=== PATIENT | male | born 1990 | race American Indian/Alaskan Native ===

== ENCOUNTER 2018-12-18 16:10 | Emergency (ER) | payer SELFPAY ==
--- NOTE | 2018-12-18 16:27 | Event Note ---
ED Screening Note Date of service: 12/18/18 Time: 16:23 ED Screening Note: This is a 28 y.o. M. that presents to the ER nervous and anxious. Denies SI/HI Reports taking ecstasy and percocet prior to arrival to self medicate. This initial assessment/diagnostic orders/clinical plan/treatment(s) is/are subject to change based on patients health status, clinical progression and re- assessment by fellow clinical providers in the ED. Further treatment and workup at subsequent clinical providers discretion. Patient/guardian urged not to elope from the ED as their condition may be serious if not clinically assessed and managed. Initial orders include: Labs
--- NOTE | 2018-12-18 17:01 | Emergency Department Report ---
<DARCISARAHEULALIO FavioBetsy - Last Filed: 12/19/18 22:02> ED Psych HPI - General Chief Complaint: Psych Stated Complaint: PANIC ATTACK Time Seen by Provider: 12/18/18 16:22 Source: patient Mode of arrival: Ambulatory - History of Present Illness Initial Comments: Patient is a 28-year-old male with no significant past medical history except for depression. Patient brought to the emergency room accompanied by his brother stated that his brother took some ecstasy and Percocet. Patient came with altered mental status. Patient is talking to himself and agitated. Patient responding to internal stimuli. Patient denied any suicidal ideation or homicidal ideation. MD Complaint: altered mental status - Related Data Allergies Allergy/AdvReac Type Severity Reaction Status Date / Time No Known Allergies Allergy Verified 12/18/18 16:22 ED Review of Systems Comment: All other systems reviewed and negative Constitutional: denies: chills, fever Respiratory: denies: cough, orthopnea, shortness of breath, SOB with exertion, SOB at rest, wheezing Cardiovascular: denies: chest pain, palpitations Gastrointestinal: denies: abdominal pain, nausea, vomiting, diarrhea, constipation, hematemesis, melena Musculoskeletal: denies: back pain Neurological: denies: headache, weakness Psychiatric: depression ED Past Medical Hx - Past Medical History Previous Medical History?: No - Surgical History Past Surgical History?: No - Social History Smoking Status: Never Smoker Substance Use Type: Other ED Physical Exam - General Limitations: No Limitations General appearance: alert, in no apparent distress, anxious, other (agitated ) - ENT ENT exam: Present: normal exam, normal orophraynx, mucous membranes moist - Neck Neck exam: Present: normal inspection, full ROM. Absent: tenderness, meningismus, lymphadenopathy, thyromegaly - Respiratory Respiratory exam: Present: normal lung sounds bilaterally - Cardiovascular Cardiovascular Exam: Present: tachycardia - GI/Abdominal GI/Abdominal exam: Present: soft, normal bowel sounds. Absent: distended, tenderness, guarding, rebound, rigid, mass, bruit, pulsatile mass, hernia - Extremities Exam Extremities exam: Present: normal inspection, full ROM, normal capillary refill. Absent: tenderness, pedal edema, calf tenderness - Back Exam Back exam: Present: normal inspection, full ROM. Absent: CVA tenderness (R), CVA tenderness (L), muscle spasm, paraspinal tenderness, vertebral tenderness, r steve noted - Neurological Exam Neurological exam: Present: alert, oriented X3, CN II-XII intact, normal gait, reflexes normal - Psychiatric Psychiatric exam: Present: normal mood - Skin Skin exam: Present: warm, intact, normal color ED Medical Decision Making - Lab Data Result diagrams: 12/18/18 16:45 12/18/18 16:45 ED Disposition Clinical Impression: Drug-induced psychotic disorder, Depression, Amphetamine abuse Disposition: DC-01 TO HOME OR SELFCARE Condition: Stable Instructions: Methamphetamine Abuse (ED), Bipolar Disorder (ED), Depression (ED) Additional Instructions: Follow up with resources provided by mental health. Referrals: PRIMARY CARE, [Primary Care Provider] - 3-5 Days [facility] [Outside] - 3-5 Days <PATRICIO FRIAS - Last Filed: 12/20/18 08:37> ED Review of Systems ROS: Stated complaint: PANIC ATTACK Other details as noted in HPI ED Course Vital Signs 12/18/18 12/18/18 12/19/18 16:23 21:02 01:00 Temperature 97.9 F 98.2 F 98.0 F Pulse Rate 154 H 101 H 70 Respiratory 24 18 18 Rate Blood Pressure 144/90 Blood Pressure 114/90 115/75 [Left] O2 Sat by Pulse 100 99 100 Oximetry 12/19/18 12/19/18 12/19/18 07:00 13:00 19:00 Temperature 98.8 F 98.2 F 98.2 F Pulse Rate 86 108 H 86 Respiratory 18 20 18 Rate Blood Pressure Blood Pressure 132/91 130/77 116/80 [Left] O2 Sat by Pulse 99 97 98 Oximetry 12/19/18 12/20/18 20:00 01:00 Temperature 97.8 F Pulse Rate 73 Respiratory 18 18 Rate Blood Pressure Blood Pressure 115/71 [Left] O2 Sat by Pulse 98 98 Oximetry ED Medical Decision Making - Lab Data Result diagrams: 12/18/18 16:45 12/20/18 05:29 Critical care attestation.: If time is entered above; I have spent that time in minutes in the direct care of this critically ill patient, excluding procedure time. ED Disposition Is pt being admited?: No Does the pt Need Aspirin: No Time of Disposition: 08:37
[2018-12-18] MEDS ORDERED: GEODON IM ONE (17:02)
[2018-12-18 17:06] LABS: Basophils # (Auto) 0.1 K/mm3 (0.0-0.1); Eosinophils # (Auto) 0.1 K/mm3 (0.0-0.4); Eosinophils % (Auto) 0.8 % (0.0-4.3); Hematocrit 45.9 % (35.5-45.6); Hemoglobin 16.2 gm/dl (11.8-15.2); Lymphocytes # (Auto) 1.4 K/mm3 (1.2-5.4); Lymphocytes % (Auto) 20.2 % (13.4-35.0); Mean Corpuscular HGB Conc 35 % (32-34); Mean Corpuscular Volume 91 fl (84-94); Monocytes # (Auto) 0.4 K/mm3 (0.0-0.8); Platelet Count 386 K/mm3 (140-440); Red Blood Count 5.06 M/mm3 (3.65-5.03); Red Cell Distribution Width 12.5 % (13.2-15.2)
[2018-12-18] MEDS ORDERED: WATER FOR INJ Sterile (PF) 10 ML ONE (17:06)
[2018-12-18 17:08] LABS: Bilirubin,Urine NEG (Negative); Blood,Urine NEG (Negative); Color,Urine Yellow (Yellow); Mucus,Urine 1+ /HPF; Protein,Urine <15 mg/dL mg/dL (Negative); Urobilinogen,Urine < 2.0 mg/dL (<2.0); WBC,Urine < 1.0 /HPF (0.0-6.0)
[2018-12-18 17:23] LABS: BUN/Creatinine Ratio 6; Blood Urea Nitrogen 7 mg/dL (9-20); Hemolysis Index 32
[2018-12-18 17:23] LABS: Benzodiazepines Screen,Urine PRESUMPTIVE NEGATIVE; Cannabinoid Screen,Urine PRESUMPTIVE NEGATIVE; Cocaine Screen,Urine PRESUMPTIVE NEGATIVE; Methadone Screen,Urine PRESUMPTIVE NEGATIVE; Opiate Screen,Urine PRESUMPTIVE NEGATIVE
[2018-12-18 17:30] LABS: Alanine Aminotransferase 11 units/L (7-56); Albumin 5.1 g/dL (3.9-5)
[2018-12-18 18:05] LABS: Amphetamine Screen,Urine PRESUMPTIVE POSITIVE
[2018-12-18 18:06] LABS: Bilirubin,Direct < 0.2 mg/dL (0-0.2)
--- NOTE | 2018-12-19 09:18 | Consultation ---
History of Present Illness - Reason for Consult Consult date: 12/19/18 Reason for consult: Mental Health Evaluation Requesting physician: JESI BEJARANO - Chief Complaint Chief complaint: "I used drugs" - History of Present Psychiatric Illness 28 y.o. AA male who presented to the ER for AMS. Per the record, the patient ingested ecstasy and a Percocet prior to coming to the ER. Today the patient was calm during the assessment. His thought process was circumstantial throughout the interview. He acknowledged a hx of substance abuse, but was unclear of all the details on how he got to the ER when asked. He stated a long hx of recreational drug since he was 16 yrs old. He would not confirm or deny rehab services in the past. He stated that his "drug use" have interfered with his life in a "bad way." He denies SI/HI's, AVH's, and being depressed. He denies a poor appetite, but acknowledged poor sleep the past few days. He denies alcohol consumption (etoh). Medications and Allergies Allergies Allergy/AdvReac Type Severity Reaction Status Date / Time No Known Allergies Allergy Verified 12/18/18 16:22 Past psychiatric history - Past Medical History Past Medical History: No medical history Past Surgical History: No surgical history - past Psychiatric treatment and history psychiatric treatment history: Hx of substance abuse. Denies a fam psy hx. - Social History Social history: lives with family Mental Status Exam - Vital signs Last Vital Signs Temp 98.8 F 12/19/18 07:00 Pulse 86 12/19/18 07:00 Resp 18 12/19/18 07:00 BP 132/91 12/19/18 07:00 Pulse Ox 99 12/19/18 07:00 - Exam Narrative exam: MSE: Appearance: calm Behavior: regular eye contact Speech: regular rate and tone Mood: "okay" Affect: congruent to mood Thought Process: circumstantial Thought Content: denies SI/HI's and AVHs' Motor Activity: lying in bed Cognition: A/O x 3 Insight: variable Judgment: variable Results Result Diagrams: 12/18/18 16:45 12/18/18 16:45 Abnormal lab results 12/18/18 12/18/18 12/18/18 Range/Units 16:45 16:45 16:45 RBC 5.06 H (3.65-5.03) M/mm3 Hgb 16.2 H (11.8-15.2) gm/dl Hct 45.9 H (35.5-45.6) % MCHC 35 H (32-34) % RDW 12.5 L (13.2-15.2) % Seg Neutrophils % 72.0 H (40.0-70.0) % Potassium 3.1 L (3.6-5.0) mmol/L Chloride 95.2 L (98-107) mmol/L Carbon Dioxide 18 L (22-30) mmol/L BUN 7 L (9-20) mg/dL Glucose 186 H (75-100) mg/dL Total Protein (6.3-8.2) g/dL Albumin (3.9-5) g/dL Salicylates < 0.3 L (2.8-20.0) mg/dL Acetaminophen (10.0-30.0) ug/mL 12/18/18 12/18/18 Range/Units 16:45 16:52 RBC (3.65-5.03) M/mm3 Hgb (11.8-15.2) gm/dl Hct (35.5-45.6) % MCHC (32-34) % RDW (13.2-15.2) % Seg Neutrophils % (40.0-70.0) % Potassium (3.6-5.0) mmol/L Chloride (98-107) mmol/L Carbon Dioxide (22-30) mmol/L BUN (9-20) mg/dL Glucose (75-100) mg/dL Total Protein 8.7 H (6.3-8.2) g/dL Albumin 5.1 H (3.9-5) g/dL Salicylates (2.8-20.0) mg/dL Acetaminophen < 5.0 L (10.0-30.0) ug/mL All other labs normal. Assessment and Plan Assessment and plan: Impression: Substance Induced Psychosis. Substance Use DO (amphetamines). Today the patient was calm during the assessment. DDx: R/O Psychotic DO Recommendations/Plan: Reevaluate the patient's 1013 in 24 hours. Discussed the importance to abstain from recreational drug use with the patient, he verbalized understanding. Dipso: If the patient's 1013 is rescinded in 24 hours, he can follow up with [facility] for outpatient rehab services. Will staff with Dr Emperatriz Fatima.
[2018-12-19] MEDS ORDERED: MELATONIN PO SCH (22:00)
[2018-12-20 06:03] LABS: BUN/Creatinine Ratio 9; Blood Urea Nitrogen 8 mg/dL (9-20); Calcium 9.3 mg/dL (8.4-10.2); Hemolysis Index 14
--- NOTE | 2018-12-20 07:32 | Progress Note ---
Subjective - Reason for Consult Consult date: 12/20/18 Reason for consult: Psychiatry Follow-up - Chief Complaint Chief complaint: "I will do a better job" 28 y.o. AA male who presented to the ER for AMS. Per the record, the patient ingested ecstasy and a Percocet prior to coming to the ER. Today the patient was calm and cooperative during the assessment. He stated that he will not use "drugs" again. He stated that he must make better decisions. He is willing to attend rehab services when discharged. The patient stated that he slept well last night. He denies SI/HI's and VH's. Per the record, no behavioral disturbance by the patient overnight. Mental Status Exam - Vital signs Last Vital Signs Temp 97.8 F 12/20/18 01:00 Pulse 73 12/20/18 01:00 Resp 18 12/20/18 01:00 BP 115/71 12/20/18 01:00 Pulse Ox 98 12/20/18 01:00 - Exam Narrative exam: MSE: Appearance: calm, cooperative Behavior: regular eye contact Speech: regular rate and tone Mood: "okay" Affect: congruent to mood Thought Process: logical l Thought Content: denies SI/HI's and AVHs' Motor Activity: lying in bed Cognition: A/O x 3 Insight: appropriate Judgment: appropriate Assessment and Plan Impression: Substance Induced Psychosis. Substance Use DO (amphetamines). Today the patient was calm and cooperative during the assessment. The patient's psychosis have resolved. DDx: R/O Psychotic DO Recommendations/Plan: Rescind 1013. Discussed the importance to abstain from recreational drug use with the patient, he verbalized understanding. Dipso: The patient can follow up with [facility] for outpatient rehab services. Will staff with Dr Emperatriz Fatima.
[2018-12-20 08:56] VITALS: BP 121/79
== END 2018-12-20 09:30 | disposition home or self-care (01) ==
LOC: ED 16:10
DX: F15.10 Other stimulant abuse, uncomplicated (principal); F32.9 Major depressive disorder, single episode, unspecified; Z79.899 Other long term (current) drug therapy
CPT/HCPCS: 36415; 80048; 80076; 80307; 81001; 85025; 93010; 96372; 99284; J3486; 80320; 93005; G0480